=== PATIENT | female | born 1935 | race Caucasian/White ===

== ENCOUNTER 2017-05-29 01:46 | Inpatient (IN) | payer OTHER ==
[~2017-05-29] VITALS: Ht 160 cm; Wt 73.5 kg
[~2017-05-29 01:46] MED LIST: ASA81 MG; ATENOLOL100 MG; COZAAR50 MG; GABAPENTIN300 MG; GLIPIZIDE10 MG; GLIPIZIDE5 MG; INDAPAMIDE2.5 MG; LEVOTHYROXINE25 MCG; LOZOL2.5 MG; METFORMIN HCL500 MG; TENORMIN25 MG
== END 2017-05-31 22:02 | disposition home or self-care (01) | DRG 181 ==
LOC: ER 01:46 → MEDJ 20:30
PROC: 3E0F7GC Introduction of Other Therapeutic Substance into Respiratory Tract, Via Natural or Artificial Opening (ICD-10-PCS; 2017-05-29)
PROC: 4A033R1 Measurement of Arterial Saturation, Peripheral, Percutaneous Approach (ICD-10-PCS; 2017-05-29)
PROC: BW24ZZZ Computerized Tomography (CT Scan) of Chest and Abdomen (ICD-10-PCS; 2017-05-29)
PROC: 0W9B3ZX Drainage of Left Pleural Cavity, Percutaneous Approach, Diagnostic (ICD-10-PCS; principal; 2017-05-30)
DX: C34.12 Malignant neoplasm of upper lobe, left bronchus or lung (principal); J91.0 Malignant pleural effusion; R09.02 Hypoxemia; I10 Essential (primary) hypertension; E03.8 Other specified hypothyroidism; E11.9 Type 2 diabetes mellitus without complications

== ENCOUNTER 2017-06-23 16:33 | Inpatient (IN) | payer OTHER ==
[~2017-06-23] VITALS: Ht 162.6 cm; Wt 74.8 kg
== END 2017-06-28 16:30 | disposition home or self-care (01) | DRG 181 ==
LOC: ER 16:33 → SEC-K 06-24 14:30 → MEDJ 06-24 15:29
PROC: 3E0F7GC Introduction of Other Therapeutic Substance into Respiratory Tract, Via Natural or Artificial Opening (ICD-10-PCS; 2017-06-24)
PROC: 0W9B3ZX Drainage of Left Pleural Cavity, Percutaneous Approach, Diagnostic (ICD-10-PCS; principal; 2017-06-27)
DX: C34.12 Malignant neoplasm of upper lobe, left bronchus or lung (principal); J91.0 Malignant pleural effusion; E87.1 Hypo-osmolality and hyponatremia; R09.02 Hypoxemia; I10 Essential (primary) hypertension; E03.8 Other specified hypothyroidism; E11.9 Type 2 diabetes mellitus without complications